=== PATIENT | male | born 1995 | race Caucasian/White ===

== ENCOUNTER 2020-10-13 14:43 | Emergency (ER) | payer OTHER ==
[~2020-10-13 14:43] MED LIST: FLEXERIL 10 MG10 MG PO; NAPROSYN500 MG PO
[2020-10-13] MEDS ORDERED: AUGMENTIN 875-1 EACH PO (15:38)
[2020-10-13] MEDS ORDERED: IBUPROFEN600 MG PO (15:38)
== END 2020-10-13 15:46 | disposition home or self-care (01) ==
LOC: ER1 14:43
DX: H66.92 Otitis media, unspecified, left ear (principal); F17.200 Nicotine dependence, unspecified, uncomplicated; Z90.89 Acquired absence of other organs
CPT/HCPCS: 99282

== ENCOUNTER 2021-06-27 18:36 | Emergency (ER) | payer OTHER ==
[~2021-06-27 18:36] MED LIST changes: +AUGMENTIN 875-1 EACH PO; +IBUPROFEN600 MG PO
== END 2021-06-27 19:54 | disposition left against medical advice (07) ==
LOC: ER1 18:36
DX: S09.90XA Unspecified injury of head, initial encounter (principal); F17.210 Nicotine dependence, cigarettes, uncomplicated; Y04.8XXA Assault by other bodily force, initial encounter
CPT/HCPCS: 99281